=== PATIENT | male | born 1940 | race Caucasian/White ===

== ENCOUNTER 2016-12-12 14:43 | Emergency (ER) | payer MEDICARE ==
[~2016-12-12] VITALS: Ht 180.3 cm; Wt 81.6 kg
--- OUTSIDE RECORDS SUMMARY | 2016-12-12 14:47 | XMS REPORT | Continuity of Care Document ---
Author Author [facility] Organization [facility] Address Unknown Phone Unavailable Care Team Providers Care Floor Technician Name Role Phone Alon Hopson PCP [phone] Source Comments Some departments are not documenting in the electronic medical record. If you do not see the information that you expected, contact Release of Information in the Health Information Management department at [phone] for further assistance in locating additional records.[facility] Active Allergies and Adverse Reactions No Known Allergies Current Medications Prescription Sig. Disp. Refills Start End Date Status Date NAPROXEN SODIUM (ALEVE Take by mouth as Needed. Active PO) sildenafil(+) (VIAGRA) 50 Take 50 mg by mouth as Active mg tablet Needed for Erectile dysfunction. ASCORBATE CALCIUM Take 100 mg by mouth Active (VITAMIN C PO) daily. cyanocobalamin (VITAMIN Take 1,000 mcg by mouth Active B-12) 1,000 mcg tablet daily. cholecalciferol (VITAMIN Take 2,000 Units by mouth Active D-3) 1,000 units tablet daily. Biotin 2,500 mcg cap Take by mouth daily. Active PSYLLIUM SEED (WITH Take by mouth daily. Active DEXTROSE) (FIBER PO) donepezil (ARICEPT) 10 mg Take 1 Tab by mouth 30 Tab 5 10/13/20 Active tablet daily. 16 carbidopa/levodopa 1 Tab three times daily. 270 Tab 3 10/13/20 Active (SINEMET) 25/100 mg 6a-10a-2p 16 tablet carbidopa/levodopa CR 1 Tab four times daily. 360 Tab 3 10/13/20 Active (SINEMET CR) 50/200 mg 7h-28s-8p-6p 16 tablet PARoxetine (PAXIL) 20 mg Take 1 Tab by mouth 30 Tab 5 10/13/20 Active tablet daily. 16 Active Problems Problem Noted Date Parkinsonism (HCC) 10/13/2016 Overview: Symptoms began in 2011, initial symptoms was memory problems. Diagnosed with Parkinson's disease in 2012. Atypical PD Features: Tremor Absent, Symmetrical Onset and early cognitive problems 10/13/2016 Total Mentation Score: 5 Total Activities of Daily Living Score: 15 Total Motor Exam: 37 Total UPDRS Score: 57 PDQ Total Percent: 38.46 % Last Assessment & Plan: Patient is a 76 y.o. year old male who presents with history of Parkinson's disease and on examination has bradykinesia and rigidity along with mild improvement in his symptoms with Sinemet. Although the patient could have Parkinson's disease, due to early cognitive problems, symmetrical onset of symptoms and lack of tremor I suspect an atypical parkinsonian syndrome like Lewy Body Dementia. At the present time he is under treated and I recommended increasing Sinemet (carbidopa/levodopa) CR 50/200 to one tab four times a day and Sinemet (carbidopa/levodopa) 25/100 to one tab three times a day. Side effects were discussed with the patient and he was given a list of common side effects. Memory change 10/13/2016 Overview: 10/13/2016 MOCA Score (out of 30): 21 On Aricept (donepezil) L ast Assessment & Plan: Patient has cognitive problems as evidenced by the MOCA scores. This is most likely secondary to underlying Lewy Body Dementia. He is on low dose Aricept (donepezil) and I recommended increasing Aricept (donepezil) 10 mg daily. Side effects were discussed with the patient and he was given a list of common side effects. Depression 10/13/2016 Overview: 10/13/2016 Geriatric Depression Scale: 13 L ast Assessment & Plan: Patient has depression as evidenced by the Geriatric Depression Scale. We discussed the treatment options including referral to a psychologist or director social service for counseling and initiating treatment with an anti depressant. Patient was started on Paxil 20 mg for depression. Side effects of the medication were discussed with the patient and they were given a list of common side effects. 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 Pulse 69 10/13/2016 12:37 PM YOKER MACHINE OPERATOR Temperature - - Respiratory Rate - - Height 1.803 m (5' 11") 10/13/2016 12:34 PM YOKER MACHINE OPERATOR Weight 82 kg (180 lb 12.4 oz) 10/13/2016 12:34 PM YOKER MACHINE OPERATOR Body Mass Index 25.22 10/13/2016 12:34 PM YOKER MACHINE OPERATOR Oxygen Saturation - - Plan of Care Date Type Specialty Providers Description 01/18/2017 Appointment Neurology Benigno Conroy MD [address] [facility] [address] [place] [address] [phone] (Fax) Health Maintenance Due Date Last Done Comments Physical (Comprehensive) 1947 Exam Pertussis Vaccine 1949 Tetanus Vaccine 1955 Shingles Vaccine 1998 Prevnar/Pneumovax (#1) 2003 Influenza Vaccine 07/09/2016 Results from Last 3 Months Not on file
[2016-12-12 15:06] LABS: BASOPHILS % (AUTO) 1 % (0-10); EOSINOPHILS # (AUTO) 0.1 10^3/uL (0.0-0.3); EOSINOPHILS % (AUTO) 2 % (0-10); LYMPHOCYTES # (AUTO) 1.8 X 10^3 (1.0-4.0); LYMPHOCYTES % (AUTO) 24 % (12-44); MEAN CORPUSCULAR HEMOGLOBIN 31 PG (25-34); MEAN CORPUSCULAR HGB CONC 34 G/DL (32-36); MEAN CORPUSCULAR VOLUME 90 FL (80-99); MEAN PLATELET VOLUME 10.5 FL (7.4-10.4); MONOCYTES # (AUTO) 0.7 X 10^3 (0.0-1.0); MONOCYTES % (AUTO) 9 % (0-12); NEUTROPHILS # (AUTO) 4.8 X 10^3 (1.8-7.8); NEUTROPHILS % (AUTO) 65 % (42-75); PLATELET COUNT 211 10^3/uL (130-400); RED BLOOD COUNT 4.71 10^6/uL (4.35-5.85); RED CELL DISTRIBUTION WIDTH 12.8 % (10.0-14.5); WHITE BLOOD COUNT 7.5 10^3/uL (4.3-11.0)
[2016-12-12 15:23] LABS: ALANINE AMINOTRANSFERASE < 6 U/L (0-55); ALBUMIN 4.2 G/DL (3.2-4.5); ANION GAP 11 MMOL/L (5-14); ASPARTATE AMINO TRANSFERASE 21 U/L (5-34); BILIRUBIN,TOTAL 0.5 MG/DL (0.1-1.0); BLOOD UREA NITROGEN 21 MG/DL (7-18); BUN/CREATININE RATIO 26; CALCIUM 8.9 MG/DL (8.5-10.1); CARBON DIOXIDE 22 MMOL/L (21-32); CHLORIDE 107 MMOL/L (98-107); CREATININE SERUM 0.81 MG/DL (0.60-1.30); GFR ESTIMATED > 60; GLUCOSE 83 MG/DL (70-105); SODIUM 140 MMOL/L (135-145); TOTAL PROTEIN 6.4 G/DL (6.4-8.2)
--- NOTE | 2016-12-12 15:28 | Diagnostic Imaging Report ---
Clinical indication: Patient fell and hit back of head on floor. Exam: Portable chest x-ray upright view. Comparisons: None. Findings: Lungs/pleura: Lungs are clear. There is no pneumothorax. There is no pleural effusion. Mediastinum: Unremarkable. Pulmonary vasculature: Unremarkable. Heart: Unremarkable. Bones/extrathoracic soft tissue: There are hypertrophic spurs involving the left glenohumeral joint. Impression: There is no radiographic evidence of acute cardiopulmonary process. Dictated by: Dictated on workstation # [id number]
[2016-12-12 15:29] LABS: TROPONIN I < 0.30 NG/ML (<0.30)
--- NOTE | 2016-12-12 15:29 | ED Fall/Injury ---
General Chief Complaint: Trauma-Non Activation Stated Complaint: FALL Nursing Triage Note: PT TO ED ROOM 10 AT 1442 PER EMS. PT STATES FALL AT HOME, DOES NOT REMEMBER FALLING, DENIES DIZZINES, DENIES TRIPPING OVER ANYTHING. STATES HEAD AND NECK PAIN, PT IN C-COLLAR ON ARRIVAL. STATES HE HAD L SIDE/RIB PAIN WHEN EMS ARRIVED BUT DENIES CURRENT PAIN IN THAT AREA. Source: patient, EMS, spouse Exam Limitations: no limitations History of Present Illness Time seen by provider: 15:29 Initial Comments 76-year-old male patient presents to the emergency department via EMS with complaints of falling at home. Patient initially denied recall of falling. However, now states he does remember losing his balance and falling backwards. Does remember hitting his head. However, he does not recall anything from that time he hit his head until his came in to the room and found him. Patient complains of posterior head pain and neck pain. Denies back pain, numbness, weakness, changes in vision. Location Injury Occurred: home Occurred: just prior to arrival Injuries/Pain Location: head, neck Context: lost balance Loss of Consciousness: unsure Modifying Factors: Worse With Movement Allergies and Home Medications Allergies Coded Allergies: No Known Drug Allergies (Unverified , 12/12/16) Home Medications Hydrocodone/Acetaminophen 1 Each Tablet #14 0.5-1 EACH PO Q4H PRN PRN PAIN Prescribed by: KAYLIE FERMIN on 12/12/16 5816 Constitutional: no symptoms reported Eyes: No Symptoms Reported Ears, Nose, Mouth, Throat: no symptoms reported Respiratory: No cough, No short of breath Cardiovascular: No chest pain, No palpitations, No syncope Gastrointestinal: no symptoms reported Genitourinary: no symptoms reported Musculoskeletal: see HPINo back pain, No joint pain, neck pain Skin: no symptoms reported Psychiatric/Neurological: HeadacheDenies Numbness, Denies Paresthesia, Denies Seizure, Denies Tingling, Denies Weakness All Other Systems Reviewed Negative Unless Noted: Yes (Negative excepted noted.) Past Ewrvogh-Eacgsh-Ndgokb Hx Patient Social History Recent Foreign Travel: No Contact w/Someone Who Travel: No Recent Infectious Disease Expo: No Surgeries HX Surgeries: Yes Surgeries: Orthopedic Respiratory Hx Respiratory Disorders: No Cardiovascular Hx Cardiac Disorders: No Neurological Hx Neurological Disorders: Yes Neurological Disorders: Parkinson's Disease Genitourinary Hx Genitourinary Disorders: No Gastrointestinal Hx Gastrointestinal Disorders: No Musculoskeletal Hx Musculoskeletal Disorders: No Reviewed Nursing Assessment Reviewed/Agree w Nursing PMH: Yes Family Medical History Significant Family History: No Pertinent Family Hx Physical Exam Vital Signs Vital Sign - Last 12Hours 12/12/16 12/12/16 15:03 17:07 Temp 95.8 Pulse 49 Resp 16 B/P 168/91 Pulse Ox 99 Capillary Refill : Less Than 3 Seconds General Appearance: WD/WN no apparent distress HEENT: PERRL/EOMI normal ENT inspection TMs normal pharynx normal other ( posterior scalp tender palpation. Very mild left posterior scalp swelling.) Neck: supple normal inspection tender lateral tender midline Cardiovascular: normal peripheral pulses no edema no murmur bradycardia (( patient states HR is never above 64)) Respiratory: chest non-tender lungs clear normal breath sounds no respiratory distress Gastrointestinal: normal bowel sounds non tender softNo distended Back: normal inspection no vertebral tenderness Extremities: non-tender normal inspection no pedal edema no calf tenderness normal capillary refill pelvis stable Neurologic/Psychiatric: it integration architect II-XII nml as tested no motor/sensory deficits alert normal mood/affect oriented x 3 Skin: normal color warm/dry [place] Coma Score Best Eye Response: (4) Open Spontaneously Best Verbal Response: (5) Oriented Best Motor Response: (6) Obeys Commands [place] Total: 15 Progress/Results/Core Measures Results/Orders Lab Results Laboratory Tests Test 12/12/16 14:55 Range/Units Alanine Aminotransferase (ALT/SGPT) < 6 0-55 U/L Albumin 4.2 3.2-4.5 G/DL Alkaline Phosphatase 66 40-136 U/L Anion Gap 11 5-14 MMOL/L Aspartate Amino Transf (AST/SGOT) 21 5-34 U/L BUN/Creatinine Ratio 26 Basophils # (Auto) 0.0 0.0-0.1 10^3/uL Basophils (%) (Auto) 1 0-10 % Blood Urea Nitrogen 21 H 7-18 MG/DL Calcium Level 8.9 8.5-10.1 MG/DL Carbon Dioxide Level 22 21-32 MMOL/L Chloride Level 107 98-107 MMOL/L Creatinine 0.81 0.60-1.30 MG/DL Eosinophils # (Auto) 0.1 0.0-0.3 10^3/uL Eosinophils (%) (Auto) 2 0-10 % Estimat Glomerular Filtration Rate > 60 Glucose Level 83 70-105 MG/DL Hematocrit 43 40-54 % Hemoglobin 14.4 13.3-17.7 G/DL Lymphocytes # (Auto) 1.8 1.0-4.0 X 10^3 Lymphocytes (%) (Auto) 24 12-44 % Mean Corpuscular Hemoglobin 31 25-34 PG Mean Corpuscular Hemoglobin Concent 34 32-36 G/DL Mean Corpuscular Volume 90 80-99 FL Mean Platelet Volume 10.5 H 7.4-10.4 FL Monocytes # (Auto) 0.7 0.0-1.0 X 10^3 Monocytes (%) (Auto) 9 0-12 % Neutrophils # (Auto) 4.8 1.8-7.8 X 10^3 Neutrophils (%) (Auto) 65 42-75 % Platelet Count 211 130-400 10^3/uL Potassium Level 4.0 3.6-5.0 MMOL/L Red Blood Count 4.71 4.35-5.85 10^6/uL Red Cell Distribution Width 12.8 10.0-14.5 % Sodium Level 140 135-145 MMOL/L Total Bilirubin 0.5 0.1-1.0 MG/DL Total Protein 6.4 6.4-8.2 G/DL Troponin I < 0.30 <0.30 NG/ML White Blood Count 7.5 4.3-11.0 10^3/uL My Orders Orders-KAYLIE FERMIN Acetaminophen Tablet (Tylenol Tablet) (12/12/16 16:45) Vital Signs/I&O Vital Sign - Last 12Hours 12/12/16 12/12/16 15:03 17:07 Temp 95.8 98.1 Pulse 49 74 Resp 16 18 B/P 168/91 Pulse Ox 99 Blood Pressure Mean: 116 ECG Initial ECG Impression Date: Dec 12, 2016 Initial ECG Impression Time: 14:53 Initial ECG Rate: 50 Initial ECG Rhythm: S.Be Initial ECG Impression: Sinus Bradycardia Initial ECG Comparisson: No Previous ECG Available Comment Sinus bradycardia. No STEMI or arrhythmia noted. ECG reviewed and discussed with Dr. Hui. Diagnostic Imaging Diagonstic Imaging: CT Plain Films/CT/US/NM/MRI: c-spine, head Comments FINDINGS: Head CT: There is no evidence of acute cerebral infarct, intracranial hemorrhage, or gross mass effect. There is diffuse brain parenchymal volume loss with the frontal lobe and parietal lobes affected the most. There are patchy areas of low-attenuation white matter changes throughout both cerebral hemispheres, likely representing chronic small vessel ischemic disease. There is normal herrera-white matter distinction. There is no significant midline shift or herniation. There is no evidence of hydrocephalus. The basal cisterns are unremarkable. There is a small area of extracranial soft tissue swelling in the posterior aspect of the head. There is no skull fracture. Otherwise, the skull, extracranial soft tissue, and orbits are unremarkable. There is mild mucosal thickening involving right maxillary sinus and ethmoid sinus. Cervical spine: There is no evidence of acute cervical spine fracture. Again seen cervical spine degenerative disease with hypertrophic spurs anteriorly and posteriorly predominantly seen from the C3 through C7 levels. There is stable grade 1 anterolisthesis C2 on C3 and grade 1 retrolisthesis of C4 on C5. There is multilevel moderate to severe loss of intervertebral disc height seen throughout these levels as well. There is at least mild to moderate central canal narrowing at the C4-C5 and C6-C7 levels. Multilevel neural foramen narrowing seen. Paraseptal cystic changes seen in the right lung. Atherosclerotic calcification of bilateral carotid arteries seen. Remainder of the neck soft tissue abnormalities are unremarkable. IMPRESSION: 1: There is no evidence of acute intracranial process. 2: Slight progression of severe cervical spine degenerative disease with no evidence of acute cervical spine fracture. 3: Stable grade 1 anterolisthesis of C2 on C3 and grade 1 retrolisthesis of C4 on C5. Dictated on workstation # [id number] Reviewed: Reviewed by Me (radiology report reviewed by me) Diagonstic Imaging: Xray Plain Films/CT/US/NM/MRI: chest Comments Findings: Lungs/pleura: Lungs are clear. There is no pneumothorax. There is no pleural effusion. Mediastinum: Unremarkable. Pulmonary vasculature: Unremarkable. Heart: Unremarkable. Bones/extrathoracic soft tissue: There are hypertrophic spurs involving the left glenohumeral joint. Impression: There is no radiographic evidence of acute cardiopulmonary process. Dictated on workstation # [id number] Reviewed: Reviewed by Me (radiology report reviewed by me) Departure Communication Progress Notes 1548 C/Collar removed. Patient up to the bathroom w/o difficulty. Neck is supple, trachea midline, mild tenderness midline and laterally. Full range of motion noted. 1600 patient case discussed with Dr. Zhu. Dr. Zhu recommends discharge to home with follow-up as an outpatient with his primary care physician. 1605 all laboratory and diagnostic findings discussed with the patient. Recommendations by Dr. Zhu discussed with the patient. Patient is alert and oriented 3, no acute distress. Proceed with discharge to home. Patient instructed to follow-up with his primary care physician for recheck. All return precautions were discussed with the patient as described in the discharge instructions of this report. Patient voices understanding and agrees with the treatment plan. Impression Impression: Primary Impression: Minor head injury Qualified Code: S00.90XA - Unspecified superficial injury of unspecified part of head, initial encounter Additional Impression: Sprain of cervical neck Qualified Code: S13.9XXA - Sprain of joints and ligaments of unspecified parts of neck, initial encounter Disposition: HOME, SELF-CARE Condition: Improved Departure-Patient Inst. Decision time for Depature: 16:52 Referrals: RACQUEL HI MD (PCP) Primary Care Physician Patient Instructions: Minor Head Injury (DC), Neck Sprain (DC) Add. Discharge Instructions: All discharge instructions reviewed with patient and/or family. Voiced understanding. Medications as instructed. Continue usual home medications. No strenuous activities or activities which may result and head injury for 7 days after symptoms resolve. Ice pack for 20 minute intervals as needed for pain. Follow-up with your family practitioner this week for recheck, call first thing Wednesday morning for appointment time. Return to the emergency department for worsened headache, dizziness, changes in behavior, facial drooping, slurred speech, numbness, weakness, bowel incontinence, bladder incontinence, shortness of air, chest pain, seizure, vomiting, or any other concerns. Scripts Hydrocodone/Acetaminophen (Hydrocodon -Acetaminophen 5-325)1 Each Tablet0.5-1 Each PO Q4H PRN PAIN #14 TAB Ref 0 Prov:KAYLIE FERMIN 12/12/16 KAYLIE FERMIN Dec 12, 2016 15:29
--- NOTE | 2016-12-12 15:37 | Diagnostic Imaging Report ---
CLINICAL INDICATION: Patient fell and struck back of head on floor. EXAM: Head CT without IV contrast. Axial CT scan of the cervical spine with sagittal and coronal reformations. COMPARISON: MRI of the cervical spine dated 10/09/2011. FINDINGS: Head CT: There is no evidence of acute cerebral infarct, intracranial hemorrhage, or gross mass effect. There is diffuse brain parenchymal volume loss with the frontal lobe and parietal lobes affected the most. There are patchy areas of low-attenuation white matter changes throughout both cerebral hemispheres, likely representing chronic small vessel ischemic disease. There is normal herrera-white matter distinction. There is no significant midline shift or herniation. There is no evidence of hydrocephalus. The basal cisterns are unremarkable. There is a small area of extracranial soft tissue swelling in the posterior aspect of the head. There is no skull fracture. Otherwise, the skull, extracranial soft tissue, and orbits are unremarkable. There is mild mucosal thickening involving right maxillary sinus and ethmoid sinus. Cervical spine: There is no evidence of acute cervical spine fracture. Again seen cervical spine degenerative disease with hypertrophic spurs anteriorly and posteriorly predominantly seen from the C3 through C7 levels. There is stable grade 1 anterolisthesis C2 on C3 and grade 1 retrolisthesis of C4 on C5. There is multilevel moderate to severe loss of intervertebral disc height seen throughout these levels as well. There is at least mild to moderate central canal narrowing at the C4-C5 and C6-C7 levels. Multilevel neural foramen narrowing seen. Paraseptal cystic changes seen in the right lung. Atherosclerotic calcification of bilateral carotid arteries seen. Remainder of the neck soft tissue abnormalities are unremarkable. IMPRESSION: 1: There is no evidence of acute intracranial process. 2: Slight progression of severe cervical spine degenerative disease with no evidence of acute cervical spine fracture. 3: Stable grade 1 anterolisthesis of C2 on C3 and grade 1 retrolisthesis of C4 on C5. Dictated by: Dictated on workstation # [id number]
[2016-12-12] MEDS ORDERED: ACETAMINOPHEN 500 MG TAB (TYLENOL) PO STA (16:45)
[2016-12-12] MEDS ORDERED: HYDR-3812 PO (16:56)
[2016-12-12 17:07] VITALS: BP 130/73
== END 2016-12-12 17:07 | disposition home or self-care (01) ==
LOC: EDUNIT# 14:43 → ER 14:44
DX: S13.4XXA Sprain of ligaments of cervical spine, initial encounter (principal); M47.812 Spondylosis without myelopathy or radiculopathy, cervical region; M43.12 Spondylolisthesis, cervical region; G20 Parkinson's disease; W01.0XXA Fall on same level from slipping, tripping and stumbling without subsequent striking against object, initial encounter; Y92.009 Unspecified place in unspecified non-institutional (private) residence as the place of occurrence of the external cause; Y99.8 Other external cause status
CPT/HCPCS: 36415; 70450; 71010; 72125; 80053; 84484; 85025; 93005

== ENCOUNTER 2017-02-05 16:21 | Emergency (ER) | payer MEDICARE ==
[~2017-02-05] VITALS: Ht 182.9 cm; Wt 77.1 kg
[~2017-02-05 16:21] MED LIST: HYDR-3812 PO
[2017-02-05] MEDS ORDERED: FLDR.1T (17:15)
[2017-02-05] MEDS ORDERED: MIDO10TA (17:15)
[2017-02-05] MEDS ORDERED: CARB1TAB41 (17:15)
[2017-02-05] MEDS ORDERED: DONE10TA41 (17:15)
[2017-02-05 17:29] LABS: BASOPHILS % (AUTO) 0 % (0-10); EOSINOPHILS # (AUTO) 0.1 10^3/uL (0.0-0.3); EOSINOPHILS % (AUTO) 1 % (0-10); LYMPHOCYTES # (AUTO) 1.3 X 10^3 (1.0-4.0); LYMPHOCYTES % (AUTO) 12 % (12-44); MEAN CORPUSCULAR HEMOGLOBIN 31 PG (25-34); MEAN CORPUSCULAR HGB CONC 34 G/DL (32-36); MEAN CORPUSCULAR VOLUME 91 FL (80-99); MEAN PLATELET VOLUME 10.3 FL (7.4-10.4); MONOCYTES # (AUTO) 0.8 X 10^3 (0.0-1.0); MONOCYTES % (AUTO) 7 % (0-12); NEUTROPHILS # (AUTO) 8.8 X 10^3 (1.8-7.8); NEUTROPHILS % (AUTO) 80 % (42-75); PLATELET COUNT 220 10^3/uL (130-400); RED CELL DISTRIBUTION WIDTH 12.9 % (10.0-14.5); WHITE BLOOD COUNT 10.9 10^3/uL (4.3-11.0)
[2017-02-05 17:37] LABS: BILIRUBIN,URINE NEGATIVE (NEGATIVE); KETONES,URINE 1+ (NEGATIVE); LEUKOCYTE ESTERASE ,URINE NEGATIVE (NEGATIVE); NITRITE,URINE NEGATIVE (NEGATIVE); PH,URINE 6.5 (5-9); PROTEIN,URINE NEGATIVE (NEGATIVE); UROBILINOGEN,URINE NORMAL (NORMAL)
[2017-02-05 17:47] LABS: SQUAMOUS EPITHELIAL CELL,UR RARE /HPF
--- NOTE | 2017-02-05 17:50 | ED General ---
General Chief Complaint: Dizziness/Syncope Stated Complaint: SYNCOPE, CONFUSION Nursing Triage Note: TO ROOM 09 WITH COMPLAINTS OF SYCOPE AT HOME AT APPX 1230 TODAY. PT STATES HE HIT HIS HEAD. STATES HE HAS HAD THESE EPISODED X4 NOW. STATES HE HAS BEEN CONFUSED SINCE THE FALL. STATES THEY HAVE ALWAYS WENT TO THE HOSPITAL AND HAS SEEN A DR AFTER HAVING A FAINTING SPELL. STATES CARDIAC HAS ALL BEEN RULED OUT ET DR THINKS IT IS RELATED TO HIS PARKINSONS. Nursing Sepsis Screen: No Definite Risk Source of Information: Patient, Family Exam Limitations: No Limitations History of Present Illness Time Seen by Provider: 17:48 Initial Comments Brought to ER by his with reports of a fall at home. Patient has Parkinson 's and has been enrolled in a [employer]cover Spying class II remain active. The then left the house this morning after the patient returned home from this class. She went to get groceries and when she returned she noticed him to be confused and pasty. She then brought him here. He is not on anticoagulants. He reported to her that he fell and struck his head. He denies neck pain. Timing/Duration: 1-3 Hours Severity: Moderate Allergies and Home Medications Allergies Coded Allergies: No Known Drug Allergies (Unverified , 12/12/16) Home Medications Carbidopa/Levodopa 1 Each Tablet.er, #360 (Reported) Donepezil HCl 10 Mg Tablet, #30 (Reported) Fludrocortisone Acetate 0.1 Mg Tab, #60 (Reported) Midodrine HCl 10 Mg Tablet, #90 (Reported) Constitutional: see HPI EENTM: see HPI Respiratory: no symptoms reported Cardiovascular: no symptoms reported Genitourinary: no symptoms reported Musculoskeletal: no symptoms reported Skin: no symptoms reported Psychiatric/Neurological: See HPI Hematologic/Lymphatic: No Symptoms Reported Immunological/Allergic: no symptoms reported Past Tjnunyu-Xtxwwc-[id number] Hx Patient Social History Alcohol Use: Occasionally Uses Recreational Drug Use: No Smoking Status: Former Smoker 2nd Hand Smoke Exposure: No Recent Foreign Travel: No Contact w/Someone Who Travel: No Recent Infectious Disease Expo: No Recent Hopitalizations: No Seasonal Allergies Seasonal Allergies: No Surgeries HX Surgeries: Yes (HERNIA, 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) Surgeries: Orthopedic Respiratory Hx Respiratory Disorders: No Cardiovascular Hx Cardiac Disorders: No Neurological Hx Neurological Disorders: Yes Neurological Disorders: Parkinson's Disease Reproductive System Hx Reproductive Disorders: No Genitourinary Hx Genitourinary Disorders: No Gastrointestinal Hx Gastrointestinal Disorders: No Musculoskeletal Hx Musculoskeletal Disorders: No Endocrine Hx Endocrine Disorders: No HEENT HX ENT Disorders: No Cancer Hx Cancer: Yes Cancer: Melanoma Psychosocial Hx Psychiatric Problems: No Integumentary HX Skin/Integumentary Disorder: No Blood Transfusions Hx Blood Disorders: No Family Medical History Significant Family History: No Pertinent Family Hx Physical Exam Vital Signs Vital Sign - Last 12Hours 02/05/17 17:08 Temp 98.0 Pulse 81 Resp 16 B/P (MAP) 169/92 Capillary Refill : Less Than 3 Seconds General Appearance: No Apparent Distress, WD/WN, Other (Patient is alert, he is oriented to person place time and situation. He does have a hard time answering questions but when given time he is ultimately able to correctly answer questions.) HEENT: PERRL/EOMI, TMs Normal, Normal ENT Inspection Neck: Full Range of Motion, Normal Inspection, No Tender Lateral, No Tender Midline Respiratory: No Accessory Muscle Use, No Respiratory Distress Cardiovascular: Regular Rate, Rhythm, Normal Peripheral Pulses Gastrointestinal: Normal Bowel Sounds, Non Tender Extremity: Normal Capillary Refill, Normal Inspection Neurologic/Psychiatric: Alert, Oriented x3, No Motor/Sensory Deficits Skin: Normal Color Progress/Results/Core Measures Results/Orders Lab Results Laboratory Tests Test 02/05/17 17:08 02/05/17 17:13 Range/Units White Blood Count 10.9 4.3-11.0 10^3/uL Red Blood Count 4.50 4.35-5.85 10^6/uL Hemoglobin 13.8 13.3-17.7 G/DL Hematocrit 41 40-54 % Mean Corpuscular Volume 91 80-99 FL Mean Corpuscular Hemoglobin 31 25-34 PG Mean Corpuscular Hemoglobin Concent 34 32-36 G/DL Red Cell Distribution Width 12.9 10.0-14.5 % Platelet Count 220 130-400 10^3/uL Mean Platelet Volume 10.3 7.4-10.4 FL Neutrophils (%) (Auto) 80 H 42-75 % Lymphocytes (%) (Auto) 12 12-44 % Monocytes (%) (Auto) 7 0-12 % Eosinophils (%) (Auto) 1 0-10 % Basophils (%) (Auto) 0 0-10 % Neutrophils # (Auto) 8.8 H 1.8-7.8 X 10^3 Lymphocytes # (Auto) 1.3 1.0-4.0 X 10^3 Monocytes # (Auto) 0.8 0.0-1.0 X 10^3 Eosinophils # (Auto) 0.1 0.0-0.3 10^3/uL Basophils # (Auto) 0.0 0.0-0.1 10^3/uL Sodium Level 142 135-145 MMOL/L Potassium Level 3.6 3.6-5.0 MMOL/L Chloride Level 108 H 98-107 MMOL/L Carbon Dioxide Level 25 21-32 MMOL/L Anion Gap 9 5-14 MMOL/L Blood Urea Nitrogen 13 7-18 MG/DL Creatinine 0.77 0.60-1.30 MG/DL Estimat Glomerular Filtration Rate > 60 BUN/Creatinine Ratio 17 Glucose Level 85 70-105 MG/DL Calcium Level 8.7 8.5-10.1 MG/DL Total Bilirubin 0.6 0.1-1.0 MG/DL Aspartate Amino Transf (AST/SGOT) 25 5-34 U/L Alanine Aminotransferase (ALT/SGPT) 8 0-55 U/L Alkaline Phosphatase 59 40-136 U/L Total Protein 6.2 L 6.4-8.2 G/DL Albumin 4.0 3.2-4.5 G/DL Urine Color YELLOW Urine Clarity CLEAR Urine pH 6.5 5-9 Urine Specific [place] 1.005 L 1.016-1.022 Urine Protein NEGATIVE NEGATIVE Urine Glucose (UA) NEGATIVE NEGATIVE Urine Ketones 1+ H NEGATIVE Urine Nitrite NEGATIVE NEGATIVE Urine Bilirubin NEGATIVE NEGATIVE Urine Urobilinogen NORMAL NORMAL MG/DL Urine Leukocyte Esterase NEGATIVE NEGATIVE Urine RBC (Auto) NEGATIVE NEGATIVE Urine RBC NONE /HPF Urine WBC NONE /HPF Urine Squamous Epithelial Cells RARE /HPF Urine Crystals NONE /LPF Urine Bacteria NONE /HPF Urine Casts NONE /LPF Urine Mucus NEGATIVE /LPF Urine Culture Indicated NO My Orders Orders - GISELL ESTRELLA APRN Ct Head/Cervical Spine Wo (02/05/17 17:14) Cbc With Automated Diff (02/05/17 17:14) Comprehensive Metabolic Panel (02/05/17 17:14) Ua Culture If Indicated (02/05/17 17:14) Ekg Tracing (02/05/17 17:14) Continuous Ekg Monitoring (02/05/17 17:14) Metoprolol Tartrate Injection (Lopressor (02/05/17 18:00) Medications Given in ED Current Medications Medications Dose Ordered Sig/Wero Route Start Time Stop Time Status Last Admin Dose Admin Metoprolol Tartrate 5 mg ONCE ONCE IV 02/05/17 18:00 02/05/17 18:01 DC 02/05/17 18:32 5 MG Vital Signs/I&O Vital Sign - Last 12Hours 02/05/17 17:08 Temp 98.0 Pulse 81 Resp 16 B/P (MAP) 169/92 Departure Communication Progress Notes 1811-I discussed the case with Dr. jaimes, emergency room physician at [facility]. He accepts the patient in transfer. We will send via helicopter. BP 150/93, HR 64. 1840 [facility] has been called for transport. Blood pressure 166/90. Metoprolol 5 mg IV given. GCS remains 15, patient is alert sitting upright in bed talking 1857-blood pressure up to 188. Cardene drip will be started prior to transport. Impression Impression: Primary Impression: Epidural hematoma Disposition: [facility] Condition: Stable Departure-Patient Inst. Referrals: RACQUEL HI MD (PCP) Primary Care Physician NO,LOCAL PHYSICIAN (Family) Primary Care Physician GISELL ESTRELLA APRN Feb 05, 2017 17:50
--- NOTE | 2017-02-05 17:51 | Diagnostic Imaging Report ---
PROCEDURE: CT head and CT cervical spine without contrast. TECHNIQUE: Multiple contiguous axial images were obtained through the brain and cervical spine without the use of intravenous contrast. Sagittal and coronal reformations through the cervical spine were then performed. INDICATION: 76-year-old male presents to the ER with multiple recent falls, history of Parkinson's disease COMPARISON: 12/12/16. CT HEAD FINDINGS: There is unfavorable change with the presence of a large mixed density left-sided extra-axial collection consistent with mixed density blood products extending from the left frontal convexity to the left parietal convexity. This represents an acute on chronic epidural hematoma which appears to be bounded by the suture lines. Maximum thickness is 1.5 cm. There is an approximately 7 mm left to right midline shift. There is also mild diffuse sulcal effacement along the left cerebral hemisphere but the herrera-white differentiation is maintained. There is some diffuse atrophy with a slight frontal and temporal lobe predominance. The perimesencephalic cisterns are normal. Sinuses, orbits and mastoid air cells are also normal. Bone windows show no calvarial changes. IMPRESSION: Mixed density left-sided extra-axial collection most likely an epidural collection of acute on chronic blood products. Maximum thickness is approximately 1.5 cm with an approximately 7 mm left to right midline shift. Diffuse cerebral atrophy with a frontal and temporal lobe predominance noted. CT CERVICAL SPINE FINDINGS: Axial images and sagittal and coronal reconstructions of the cervical spine demonstrate moderate to severe cervical spondylosis with multilevel hypertrophic facet changes. There are anterior bridging osteophytes as well as endplate sclerosis and loss of disc space height at multiple levels. There is also multilevel hypertrophic facet changes. Uncovertebral osteophytes do contribute to mild neuroforaminal compromise at multiple levels. There is, however, no definite evidence of acute fracture or acute subluxation. The prevertebral soft tissue as well as the relationship of the dens to the lateral mass of C1 is normal. The parapharyngeal and paraspinous soft tissues are also normal. Bilateral carotid bifurcation disease with calcific atherosclerosis appears more prominent on the right when compared to the left. IMPRESSION: Moderate to severe cervical spondylosis but no definite evidence of acute fracture or acute subluxation is seen. Additional nonemergent findings, as described above. Dictated by: Dictated on workstation # [id number]
[2017-02-05 17:54] LABS: ALANINE AMINOTRANSFERASE 8 U/L (0-55); ANION GAP 9 MMOL/L (5-14); ASPARTATE AMINO TRANSFERASE 25 U/L (5-34); BILIRUBIN,TOTAL 0.6 MG/DL (0.1-1.0); BLOOD UREA NITROGEN 13 MG/DL (7-18); BUN/CREATININE RATIO 17; CALCIUM 8.7 MG/DL (8.5-10.1); CARBON DIOXIDE 25 MMOL/L (21-32); CHLORIDE 108 MMOL/L (98-107); CREATININE SERUM 0.77 MG/DL (0.60-1.30); GFR ESTIMATED > 60; GLUCOSE 85 MG/DL (70-105); POTASSIUM 3.6 MMOL/L (3.6-5.0); SODIUM 142 MMOL/L (135-145); TOTAL PROTEIN 6.2 G/DL (6.4-8.2)
[2017-02-05] MEDS ORDERED: meTOprolol 5 MG/5 ML (LOPRESSOR) VIAL IV ONE (18:00)
[2017-02-05 18:40] VITALS: BP 176/91
[2017-02-05] MEDS ORDERED: niCARdipine IV FOR DRIP 50 MG KIT ONE (18:55)
[2017-02-05] MEDS ORDERED: niCARdipine 25 MG/10 ML (CARDENE) AMP IV ONE (18:57)
--- OUTSIDE RECORDS SUMMARY | 2017-02-28 09:27 | XMS REPORT | Continuity of Care Document ---
Author Author [facility] Organization [facility] Address Unknown Phone Unavailable Allergies Active Description Code Type Severity Reaction Onset Reported/Identified Relationship to Patient Clinical Status Yes No Known Drug Allergies [id number] Drug Allergy Unknown N/ A 12/12/2016 Medications Problems Date Dx Coded Attending Type Code Diagnosis Diagnosed By ABRAHAM CAMPUZANO DO Ot G20 PARKINSON'S DISEASE 10/07/1325 OTHER, UNLISTED Ot 787.20 DYSPHAGIA, UNSPECIFIED 10/07/1325 OTHER, UNLISTED Ot V57.3 CARE INVOLVING SPEECH-LANGUAGE THERAPY 10/07/1409 RACQUEL HI MD, Ot G20 PARKINSON'S DISEASE 10/07/1699 RACQUEL HI MD, Ot G20 PARKINSON'S DISEASE 10/11/2013 FREDI THOMAS MD Ot 333.0 10/11/2013 FREDI THOMAS MD Ot V57.1 10/17/2013 OTHER, UNLISTED Ot 787.20 10/17/2013 OTHER, UNLISTED Ot V57.3 03/19/2014 KRAIG SCHNEIDER DO Ot 720.2 03/19/2014 KRAIG SCHNEIDER DO Ot 721.3 03/19/2014 KRAIG SCHNEIDER DO Ot V57.1 11/19/2014 Ot 721.0 11/19/2014 Ot 721.3 11/20/2014 Ot 721.0 11/20/2014 Ot 721.3 12/17/2014 VIPUL DELGADO, JOEL Alberto Ot 724.02 12/19/2014 VIPUL DELGADO, JOEL Alberto Ot 724.02 01/14/2016 ABRAHAM CAMPUZANO DO Ot G20 02/28/2016 ABRAHAM CAMPUZANO DO R Ot G20 PARKINSON'S DISEASE 03/05/2016 ABRAHAM CAMPUZANO DO R Ot G20 PARKINSON'S DISEASE 06/12/2016 RACQUEL HI MD, Ot G20 PARKINSON'S DISEASE 07/30/2016 SUSSY MD, RACQUEL Ot G20 PARKINSON'S DISEASE 08/05/2016 SUSSY DELGADO, RACQUEL Ot G20 PARKINSON'S DISEASE 08/07/2016 RACQUEL HI MD Ot G20 PARKINSON'S DISEASE 08/10/2016 SUSSY DELGADO, RACQUEL Ot G20 PARKINSON'S DISEASE 09/21/2016 RACQUEL HI MD Ot G20 PARKINSON'S DISEASE 09/29/2016 RACQUEL HI MD Ot G20 PARKINSON'S DISEASE 12/12/2016 KAYLIE QIU Ot G20 PARKINSON'S DISEASE 12/12/2016 KAYLIE QIU Ot M43.12 SPONDYLOLISTHESIS, CERVICAL REGION 12/12/2016 KAYLIE QIU Ot 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 OR RADICULOPA 12/12/2016 KAYLIE QIU Ot S13.4XXA SPRAIN OF LIGAMENTS OF CERVICAL SPINE , I 12/12/2016 KAYLIE QIU Ot S19.9XXA UNSPECIFIED INJURY OF NECK, INITIAL ENCO 12/12/2016 KAYLIE QIU Ot W01.0XXA FALL SAME LEV FROM SLIP/TRIP W/O STRIKE 12/12/2016 KAYLIE QIU Ot Y92.[address] IN [facility] NON-INSTITUT ( PRIVATE 12/12/2016 KAYLIE QIU Ot Y99.8 OTHER EXTERNAL CAUSE STATUS 12/13/2016 KAYLIE QIU Ot G20 PARKINSON'S DISEASE 12/13/2016 KAYLIE QIU Ot M43.12 SPONDYLOLISTHESIS, CERVICAL REGION 12/13/2016 KAYLIE QIU Ot 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 OR RADICULOPA 12/13/2016 KAYLIE QIU Ot S13.4XXA SPRAIN OF LIGAMENTS OF CERVICAL SPINE , I 12/13/2016 KAYLIE QIU Ot S19.9XXA UNSPECIFIED INJURY OF NECK, INITIAL ENCO 12/13/2016 KAYLIE QIU Ot W01.0XXA FALL SAME LEV FROM SLIP/TRIP W/O STRIKE 12/13/2016 KAYLIE QIU Ot Y92.[address] IN [facility] NON-INSTITUT ( PRIVATE 12/13/2016 KAYLIE QIU Ot Y99.8 OTHER EXTERNAL CAUSE STATUS 12/14/2016 KAYLIE QIU Ot G20 PARKINSON'S DISEASE 12/14/2016 KAYLIE QIU Ot M43.12 SPONDYLOLISTHESIS, CERVICAL REGION 12/14/2016 KAYLIE QIU Ot 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 OR RADICULOPA 12/14/2016 KAYLIE QIU Ot S13.4XXA SPRAIN OF LIGAMENTS OF CERVICAL SPINE , I 12/14/2016 KAYLIE QIU Ot S19.9XXA UNSPECIFIED INJURY OF NECK, INITIAL ENCO 12/14/2016 KAYLIE QIU Ot W01.0XXA FALL SAME LEV FROM SLIP/TRIP W/O STRIKE 12/14/2016 KAYLIE QIU Ot Y92.[address] IN [facility] NON-INSTIT[facility] ( PRIVATE 12/14/2016 KAYLIE QIU Ot Y99.8 OTHER EXTERNAL CAUSE STATUS 12/15/2016 KAYLIE QIU Ot G20 PARKINSON'S DISEASE 12/15/2016 KAYLIE QIU Ot M43.12 SPONDYLOLISTHESIS, CERVICAL REGION 12/15/2016 KAYLIE QIU Ot 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 OR RADICULOPA 12/15/2016 KAYLIE QIU Ot S13.4XXA SPRAIN OF LIGAMENTS OF CERVICAL SPINE , I 12/15/2016 KAYLIE QIU Ot S19.9XXA UNSPECIFIED INJURY OF NECK, INITIAL ENCO 12/15/2016 KAYLIE QIU Ot W01.0XXA FALL SAME LEV FROM SLIP/TRIP W/O STRIKE 12/15/2016 KAYLIE QIU Ot Y92.[address] IN [facility] NON-INSTITUT ( PRIVATE 12/15/2016 KAYLIE QIU Ot Y99.8 OTHER EXTERNAL CAUSE STATUS 01/05/2017 KAYLIE QIU Ot G20 PARKINSON'S DISEASE 01/05/2017 KAYLIE QIU Ot M43.12 SPONDYLOLISTHESIS, CERVICAL REGION 01/05/2017 KAYLIE QIU Ot 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 OR RADICULOPA 01/05/2017 KAYLIE QIU Ot S13.4XXA SPRAIN OF LIGAMENTS OF CERVICAL SPINE , I 01/05/2017 KAYLIE QIU Ot S19.9XXA UNSPECIFIED INJURY OF NECK, INITIAL ENCO 01/05/2017 KAYLIE QIU Ot W01.0XXA FALL SAME LEV FROM SLIP/TRIP W/O STRIKE 01/05/2017 KAYLIE QIU Ot Y92.[address] IN [facility] 01/05/2017 KAYLIE QIU Ot Y99.8 OTHER EXTERNAL CAUSE STATUS 02/05/2017 GISELL ESTRELLA APRN Ot G20 PARKINSON'S DISEASE 02/05/2017 GISELL ESTRELLA APRN Ot 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 02/05/2017 GISELL ESTRELLA APRN, Ot 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 OR RADICULOPA 02/05/2017 GISELL ESTRELLA APRN Ot R55 SYNCOPE AND COLLAPSE 02/05/2017 GISELL ESTRELLA APRN Ot S06.5X0A TRAUM SUBDR HEM W/O LOSS OF CONSCIOUSNES 02/05/2017 GISELL ESTRELLA APRN Ot W01.0XXA FALL SAME LEV FROM SLIP/TRIP W/O STRIKE 02/05/2017 GISELL ESTRELLA APRN Ot Y92.[address] IN [facility] 02/05/2017 GISELL ESTRELLA APRN Ot Y99.8 OTHER EXTERNAL CAUSE STATUS 02/05/2017 GISELL ESTRELLA APRN Ot Z79.899 OTHER [facility] (CURRENT) DRUG THERAPY 02/08/2017 GISELL ESTRELLA APRN Ot G20 PARKINSON'S DISEASE 02/08/2017 GISELL ESTRELLA APRN Ot 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 02/08/2017 GISELL ESTRELLA APRN Ot 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 OR RADICULOPA 02/08/2017 GISELL ESTRELLA APRN Ot R55 SYNCOPE AND COLLAPSE 02/08/2017 GISELL ESTRELLA APRN Ot S06.5X0A TRAUM SUBDR HEM W/O LOSS OF CONSCIOUSNES 02/08/2017 GISELL ESTRELLA APRN, Ot W01.0XXA FALL SAME LEV FROM SLIP/TRIP W/O STRIKE 02/08/2017 ESTRELLA GISELL Remy FINANCIAL PLANNING ANALYST Ot Y92.009 [facility] PLACE IN [facility] NON-INSTITUT ( PRIVATE 02/08/2017 GISELL ESTRELLA FINANCIAL PLANNING ANALYST Ot Y99.8 OTHER EXTERNAL CAUSE STATUS 02/08/2017 GISELL ESTRELLA SHANNON Ot Z79.899 OTHER [facility] (CURRENT) DRUG THERAPY Procedures Results Test Result Range Complete blood count (CBC) with automated white blood cell (WBC) differential - 12/12/16 14:55 Blood leukocytes automated count (number/volume) 7.5 10*3/ uL 4.3-11.0 Blood erythrocytes automated count (number/volume) 4.71 10*6 /uL 4.35-5.85 Venous blood hemoglobin measurement (mass/volume) 14.4 g/dL 13.3-17.7 Blood hematocrit (volume fraction) 43 % 40-54 Automated erythrocyte mean corpuscular volume 90 [foz_us] 80-99 Automated erythrocyte mean corpuscular hemoglobin (mass per erythrocyte) 31 pg 25-34 Automated erythrocyte mean corpuscular hemoglobin concentration measurement ( mass/volume) 34 g/dL 32-36 Automated erythrocyte distribution width ratio 12.8 % 10.0-14.5 Automated blood platelet count (count/volume) 211 10*3/uL 130-400 Automated blood platelet mean volume measurement 10.5 [foz_ us] 7.4-10.4 Automated blood neutrophils/100 leukocytes 65 % 42-75 Automated blood lymphocytes/100 leukocytes 24 % 12-44 Blood monocytes/100 leukocytes 9 % 0-12 Automated blood eosinophils/100 leukocytes 2 % 0-10 Automated blood basophils/100 leukocytes 1 % 0-10 Blood neutrophils automated count (number/volume) 4.8 10*3 1.8-7.8 Blood lymphocytes automated count (number/volume) 1.8 10*3 1.0-4.0 Blood monocytes automated count (number/volume) 0.7 10*3 0.0-1.0 Automated eosinophil count 0.1 10*3/uL 0.0-0.3 Automated blood basophil count (count/volume) 0.0 10*3/uL 0.0-0.1 Comprehensive metabolic panel - 12/12/16 14:55 Serum or plasma sodium measurement (moles/volume) 140 mmol/ L 135-145 Serum or plasma potassium measurement (moles/volume) 4.0 mmol/L 3.6-5.0 Serum or plasma chloride measurement (moles/volume) 107 mmol /L 98-107 Carbon dioxide 22 mmol/L 21-32 Serum or plasma anion gap determination (moles/volume) 11 mmol/L 5-14 Serum or plasma urea nitrogen measurement (mass/volume) 21 mg/dL 7-18 Serum or plasma creatinine measurement (mass/volume) 0.81 mg /dL 0.60-1.30 Serum or plasma urea nitrogen/creatinine mass ratio 26 NRG Serum or plasma creatinine measurement with calculation of estimated glomerular filtration rate > NRG Serum or plasma glucose measurement (mass/volume) 83 mg/dL 70-105 Serum or plasma calcium measurement (mass/volume) 8.9 mg/dL 8.5-10.1 Serum or plasma total bilirubin measurement (mass/volume) 0.5 mg/dL 0.1-1.0 Serum or plasma alkaline phosphatase measurement (enzymatic activity/volume) 66 U/L 40-136 Serum or plasma aspartate aminotransferase measurement (enzymatic activity/ volume) 21 U/L 5-34 Serum or plasma alanine aminotransferase measurement (enzymatic activity/volume ) < U/L 0-55 Serum or plasma protein measurement (mass/volume) 6.4 g/dL 6.4-8.2 Serum or plasma albumin measurement (mass/volume) 4.2 g/dL 3.2-4.5 Serum or plasma troponin i.cardiac measurement (mass/volume) - 12/12/16 14:55 Serum or plasma troponin i.cardiac measurement (mass/volume) < ng/mL <0.30 Complete blood count (CBC) with automated white blood cell (WBC) differential - 02/05/17 17:08 Blood leukocytes automated count (number/volume) 10.9 10*3/ uL 4.3-11.0 Blood erythrocytes automated count (number/volume) 4.50 10*6 /uL 4.35-5.85 Venous blood hemoglobin measurement (mass/volume) 13.8 g/dL 13.3-17.7 Blood hematocrit (volume fraction) 41 % 40-54 Automated erythrocyte mean corpuscular volume 91 [foz_us] 80-99 Automated erythrocyte mean corpuscular hemoglobin (mass per erythrocyte) 31 pg 25-34 Automated erythrocyte mean corpuscular hemoglobin concentration measurement ( mass/volume) 34 g/dL 32-36 Automated erythrocyte distribution width ratio 12.9 % 10.0-14.5 Automated blood platelet count (count/volume) 220 10*3/uL 130-400 Automated blood platelet mean volume measurement 10.3 [foz_ us] 7.4-10.4 Automated blood neutrophils/100 leukocytes 80 % 42-75 Automated blood lymphocytes/100 leukocytes 12 % 12-44 Blood monocytes/100 leukocytes 7 % 0-12 Automated blood eosinophils/100 leukocytes 1 % 0-10 Automated blood basophils/100 leukocytes 0 % 0-10 Blood neutrophils automated count (number/volume) 8.8 10*3 1.8-7.8 Blood lymphocytes automated count (number/volume) 1.3 10*3 1.0-4.0 Blood monocytes automated count (number/volume) 0.8 10*3 0.0-1.0 Automated eosinophil count 0.1 10*3/uL 0.0-0.3 Automated blood basophil count (count/volume) 0.0 10*3/uL 0.0-0.1 Comprehensive metabolic panel - 02/05/17 17:08 Serum or plasma sodium measurement (moles/volume) 142 mmol/ L 135-145 Serum or plasma potassium measurement (moles/volume) 3.6 mmol/L 3.6-5.0 Serum or plasma chloride measurement (moles/volume) 108 mmol /L 98-107 Carbon dioxide 25 mmol/L 21-32 Serum or plasma anion gap determination (moles/volume) 9 mmol/L 5-14 Serum or plasma urea nitrogen measurement (mass/volume) 13 mg/dL 7-18 Serum or plasma creatinine measurement (mass/volume) 0.77 mg /dL 0.60-1.30 Serum or plasma urea nitrogen/creatinine mass ratio 17 NRG Serum or plasma creatinine measurement with calculation of estimated glomerular filtration rate > NRG Serum or plasma glucose measurement (mass/volume) 85 mg/dL 70-105 Serum or plasma calcium measurement (mass/volume) 8.7 mg/dL 8.5-10.1 Serum or plasma total bilirubin measurement (mass/volume) 0.6 mg/dL 0.1-1.0 Serum or plasma alkaline phosphatase measurement (enzymatic activity/volume) 59 U/L 40-136 Serum or plasma aspartate aminotransferase measurement (enzymatic activity/ volume) 25 U/L 5-34 Serum or plasma alanine aminotransferase measurement (enzymatic activity/volume ) 8 U/L 0-55 Serum or plasma protein measurement (mass/volume) 6.2 g/dL 6.4-8.2 Serum or plasma albumin measurement (mass/volume) 4.0 g/dL 3.2-4.5 Complete urinalysis with reflex to culture - 02/05/17 17:13 Urine color determination YELLOW NRG Urine clarity determination CLEAR NRG Urine pH measurement by test strip 6.5 5 -9 Specific gravity of urine by test strip 1.005 1.016-1.022 Urine protein assay by test strip, semi-quantitative NEGATIVE NEGATIVE Urine glucose detection by automated test strip NEGATIVE NEGATIVE Erythrocytes detection in urine sediment by light microscopy NEGATIVE NEGATIVE Urine ketones detection by automated test strip 1+ NEGATIVE Urine nitrite detection by test strip NEGATIVE NEGATIVE Urine total bilirubin detection by test strip NEGATIVE NEGATIVE Urine urobilinogen measurement by automated test strip (mass/volume) NORMAL NORMAL Urine leukocyte esterase detection by dipstick NEGATIVE NEGATIVE Automated urine sediment erythrocyte count by microscopy (number/high power field) NONE NRG Automated urine sediment leukocyte count by microscopy (number/high power field ) NONE NRG Bacteria detection in urine sediment by light microscopy NONE NRG Squamous epithelial cells detection in urine sediment by light microscopy RARE NRG Crystals detection in urine sediment by light microscopy NONE NRG Casts detection in urine sediment by light microscopy NONE NRG Mucus detection in urine sediment by light microscopy NEGATIVE NRG Complete urinalysis with reflex to culture NO NRG Encounters ACCT No. Visit Date/Time Discharge Status Pt. Type Provider Facility Loc./Unit Complaint [id number] 02/05/2017 16:24:00 2016 18:40:00 DIS Emergency GISELL ESTRELLA APRN [facility] ER SYNCOPE, CONFUSION, FALL [id number] 12/12/2016 14:44:00 2016 17:07:00 DIS Emergency KAYLIE QIU [facility] ER FALL [id number] 09/29/2016 11:13:00 2015 14:10:00 DIS Outpatient RACQUEL HI MD [facility] REHAB PARKINSONISM [id number] 08/05/2016 13:00:00 2015 17:00:00 DIS Outpatient RACQUEL HI MD [facility] REHAB PARKINSONISM [id number] 03/11/2016 09:43:00 2015 07:53:00 DIS Outpatient JUSTEN BLACKBURN [facility]RAHAM [facility] [id number] 11/27/2014 11:32:00 2014 23:59:59 CLS Preadmit FREDI THOMAS [facility] [id number] 11/20/2014 09:17:00 2014 23:59:59 CLS Outpatient VIPUL DELGADO, JOEL Alberto [facility] RAD [id number] 03/02/2014 11:15:00 2013 13:43:00 DIS Outpatient KRAIG SCHNEIDER DO [facility] [id number] 10/02/2013 09:43:00 2012 13:26:00 DIS Outpatient OTHER, UNLISTED [facility] REHAB DYSPHAGIA [id number] 08/04/2013 13:00:00 2012 00:01:00 DIS Outpatient FREDI THOMAS [facility] [id number] 10/09/2011 10:24:00 Document Registration
--- OUTSIDE RECORDS SUMMARY | 2017-02-28 09:27 | XMS REPORT | Continuity of Care Document ---
Author Author [facility] Organization [facility] Address Unknown Phone Unavailable Care Team Providers Care Full Roll Inspector Name Role Phone Alon Hopson PCP [phone] Source Comments Some departments are not documenting in the electronic medical record. If you do not see the information that you expected, contact Release of Information in the Health Information Management department at [phone] for further assistance in locating additional records.[facility] Active Allergies and Adverse Reactions No Known [...] 3 10/13/20 Active (SINEMET CR) 50/200 mg [id number] 16 tablet PARoxetine (PAXIL) 20 mg Take 1 Tab by mouth 30 Tab 5 10/13/20 Active tablet daily. 16 fludrocortisone Take 1 Tab by mouth twice 60 Tab 5 01/22/20 Active (FLORINEF) 0.1 mg tablet daily. with breakfast, 17 lunch. DO NOT TAKE after evening meal or 4 hours before bedtime midodrine(+) (PROAMITINE) Take 10 mg by mouth Active 10 mg tablet daily. Up to 1 tab three times a day Active Problems Problem Noted Date Parkinsonism (HCC) [...] referral to a psychologist or director social for counseling and initiating treatment with an anti depressant. Patient was started on Paxil 20 mg for depression. Side effects of the medication were discussed with the patient and they were given a list of common side effects. Most Recent Encounters Date Type Specialty Providers Description 01/20/2017 Telephone Neurology Benigno Conroy MD Dizziness - Also consulting w/ Operations Logistics Analyst ; Falls Social History Tobacco Use Types Packs/Day Years Used Date Former Smoker Quit: 12/09/1981 Smokeless Tobacco: Never Used Alcohol Use Drinks/Week oz/Week Comments Yes 7 Standard 4.2 drinks or equivalent Last Filed Vital Signs Vital Sign Reading Time Taken Blood Pressure 152/88 10/13/2016 12:37 PM CASHIER GREETER Pulse 69 10/13/2016 12:37 PM CASHIER GREETER Temperature - - Respiratory Rate - - Height 1.803 m (5' 11") 10/13/2016 12:34 PM CASHIER GREETER Weight 82 kg (180 lb 12.4 oz) 10/13/2016 12:34 PM CASHIER GREETER Body Mass Index 25.22 10/13/2016 12:34 PM CASHIER GREETER Oxygen Saturation - - Plan of Care Health Maintenance Due Date Last Done Comments Physical (Comprehensive) 1945 Exam Pertussis Vaccine 1949 Tetanus Vaccine 1955 Shingles Vaccine 1998 Prevnar/Pneumovax (#1) 2003 Influenza Vaccine 07/09/2017 Results from Last 3 Months Not on file
== END 2017-02-05 18:40 | disposition short-term general hospital (02) ==
LOC: EDUNIT# 16:21 → ER 16:24
DX: S06.5X0A Traumatic subdural hemorrhage without loss of consciousness, initial encounter (principal); M47.812 Spondylosis without myelopathy or radiculopathy, cervical region; G20 Parkinson's disease; I65.23 Occlusion and stenosis of bilateral carotid arteries; Z79.899 Other long term (current) drug therapy; W01.0XXA Fall on same level from slipping, tripping and stumbling without subsequent striking against object, initial encounter; Y92.009 Unspecified place in unspecified non-institutional (private) residence as the place of occurrence of the external cause; Y99.8 Other external cause status
CPT/HCPCS: 36415; 70450; 72125; 80053; 81000; 85025; 93005; 96374